=== PATIENT | female | born 2000 | race Caucasian/White ===

== ENCOUNTER 2022-04-05 13:30 | Outpatient (RCR) | payer BC, SELFPAY ==
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
--- NOTE | 2022-04-05 14:11 | PTOPEVAL ---
PHYSICAL THERAPY DISCHARGE NOTE Thank you for referring Trina Ye to [facility].? Please review, sign, date and return this plan of care STEVEN. I agree with and certify that the following plan of care is medically necessary. Referring Physician Date Attending Provider: Ana María Madrid, STORAGE WORKER Diagnosis thoracic spine pain Onset chronic Subjective Information States that her back pain is Query Text:As Reported By Patient/ improving. Is more able to Family stand for long periods of time Pain Assessment Timing of Pain Assessment Timing of Pain Assessment Assessment Self Report Self Report Pain Level 0 Lumbar ROM Lumbar Comments generally WFL; some hinging noted at T-L junction with extension; no pain noted Upper Extremity Range of Motion General Upper Extremity Range of Motion Reason Not Measured WFL/Left,WFL/Right Upper Extremity Muscle Strength Testing Scapular/Shoulder Bilateral Shoulder Flexion Strength 4+ Good + Shoulder Extension Strength 4+ Good + Shoulder Abduction Strength 4+ Good + Shoulder Medial Rotation Strength 4+ Good + Shoulder Lateral Rotation Strength 4+ Good + PT Clinical Summary Trina is a 21 yo female presenting to outpatient physical therapy with chronic back pain. Trina reports no pain symptoms today and reports overall significant reduction in symptoms. She demonstrates increased rotator cuff strength and scapular stability. Thoracic spine demonstrates improved mobility . She is independent in HEP and is understanding of using her HEP to continue increasing strength.
== END 2022-05-18 07:27 | disposition home or self-care (01) ==
LOC: ANHPT 13:30
PROVIDERS: PCP Nurse Practitioner Family; Referring Provider Nurse Practitioner Family; Visit Provider Nurse Practitioner Family
DX: M54.6 Pain in thoracic spine (principal)
CPT/HCPCS: 97110; 97112; 97140; 97162